=== PATIENT | female | born 1980 | race Hispanic/Latino ===

== ENCOUNTER 2017-11-04 00:15 | Day surgery (SDC) | payer MEDICAID, SELFPAY ==
[2017-11-04 01:38] VITALS: BP 123/71; TEMP 98.2; BMI 34.3
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
== END 2017-11-04 02:05 | disposition home or self-care (01) ==
LOC: L&D/OP 00:15
PROVIDERS: ATTEND Family Medicine
DX: O99.89 Other specified diseases and conditions complicating pregnancy, childbirth and the puerperium (principal); R10.32 Left lower quadrant pain; Z3A.22 22 weeks gestation of pregnancy